=== PATIENT | female | born 1955 | race Hispanic/Latino ===

== ENCOUNTER 2018-11-10 13:30 | Emergency (ER) | payer OTHER ==
[~2018-11-10] VITALS: Ht 157.5 cm; Wt 73.5 kg
[~2018-11-10 13:30] MED LIST: LOSARTAN POTAS100 MG PO; LOVASTATIN10 MG PO; METOPROLOL SUCC25 MG PO
--- OUTSIDE RECORDS SUMMARY | 2018-11-10 13:33 | XMS REPORT | Summary of Care ---
Author Author BLANQUITA PEACOCK M.D. Unknown Address [facility] Phone Unavailable Care Team Providers Care Suction Roller Name Role Phone JOAN YODER M.D. Unavailable Unavailable BLANQUITA PEACOCK M.D. Unavailable Unavailable COREY KEENAN DC, JEAN Hinson Unavailable Unavailable Unavailable Unavailable Functional Status Name Dates Details Functional status health issues are not documented Status: Name Dates Details Cognitive status health issues are not documented Status: Problems Name Dates Details Hyperlipidemia (272.4, E78.5) Status: Active Hypertension (401.9, I10) Status: Active Tachycardia (785.0, R00.0) Status: Active Bladder prolapse Status: Active Postnasal drip (784.91, R09.82) Status: Active Medications Name Dates Details Losartan Potassium 100 MG Oral Tablet TAKE 1 TABLET DAILY. Quantity: 90 JOAN YODER M.D. * Start : 22-Feb-2015 Active Metoprolol Succinate ER 25 MG Oral Tablet Extended Release 24 Hour TAKE 1 TABLET BY MOUTH EVERY DAY * Quantity: 90 Refills: 0 JOAN YODER M.D. * Start : 22-Feb-2015 Active Multivitamins Oral Capsule TAKE 1 CAPSULE DAILY. * Refills: 0 * Start : 22-Feb-2015 Active Lovastatin 20 MG Oral Tablet TAKE 1 TABLET BY MOUTH AT BEDTIME * Quantity: 30 Refills: 0 JOAN YODER M.D. * Start : 02-Mar-2015 Active Carafate TABS * Refills: 0 Active Allergies and Adverse Reactions Name Dates Details Morphine Sulfate (Concentrate) SOLN (Allergy) Status: Active Past Medical History Name Dates Details Hyperlipidemia (272.4, E78.5) Status: Active Hypertension (401.9, I10) Status: Active History of gastritis (V12.79, Z87.19) Status: Resolved Procedures Procedure Dates Details History of Cholecystectomy Completed History of Gallbladder Surgery Completed History of Kidney Surgery Completed Immunization Name Dates Details Immunizations not documented Family History Name Dates Details Family history of hypertension (V17.49, Z82.49) Comments: Family History Status: Active Family history of hyperlipidemia (V18.19, Z83.49) Comments: Family History Status: Active Family history of diabetes mellitus (V18.0, Z83.3) Comments: Family History Status: Active Social History Name Dates Details - Status: Name Dates Details Former smoker Former smoker Vital Signs Date Test Result Details [id number] BP Systolic 143 mm[Hg] Status: BP Diastolic 81 mm[Hg] Status: Height 62 in Status: Weight 177.125 lb Status: Body Mass Index Calculated 32.4 kg/m2 Status: Body Surface Area Calculated 1.82 m2 Status: Heart Rate 84 /min Status: Results Date Description Value Details Results not documented Plan of Care Name Dates Details Planned Observations Planned Goals not documented Interventions Provided Plan* 1. Has some postnasal drip and drainage down the throat. Normal appearing mucosa with some cobblestoning. FU as needed. Instructions Name Dates Details Instructions not documented Encounters Appointment; JAMEL LIN M.D. Encounter Diagnosis: Problem not documented On: 31-May-2017 10:00 Appointment; JEAN NICOLE Encounter Diagnosis: Problem not documented On: 27-Jun-2017 16:00 Appointment; JEAN NICOLE Encounter Diagnosis: Problem not documented On: 11-Jul-2017 8:15 Appointment; BLANQUITA PEACOCK M.D. Encounter Diagnosis: Problem not documented On: 18-Jun-2018 10:45
--- OUTSIDE RECORDS SUMMARY | 2018-11-10 13:33 | XMS REPORT ---
Author Author Young Ocasio Organization [employer] Address Unknown Phone Unavailable Care Team Providers Care Corporation Officer Name Role Phone Young Ocasio CP Unavailable Allergies, Adverse Reactions, Alerts Substance Reaction Event Type Reclast joint pain Drug Allergy Morphine Sulfate increased HR Drug Allergy Fosamax stomach upset Drug Allergy Evista Stomach upset Drug Allergy Problems Problem Type Condition Code Onset Dates Condition Status Problem Vitamin D deficiency, unspecified E55.9 Active Problem Long-term use of high-risk medication Z79.899 Active Problem Age-related osteoporosis without current pathological fracture M81.0 Active Assessment Age-related osteoporosis without current pathological fracture M81.0 Active Assessment Long-term use of high-risk medication Z79.899 Active Medications Medication Code System Code Instructions Start Date End Date Status Dosage Losartan Potassium [facility] [address]-10 100 MG Orally Once a day Active 1 tablet Vitamin D (Ergocalciferol) [facility] [address]-27 28582 UNIT Orally Once a week Jul 04, 2017 Active 1 capsule Toprol XL [facility] [address]-33 25 MG Orally Once a day Active 1 tablet Lovastatin [facility] [address]-90 10 MG Orally Once a day Active 1 tablet with a meal Multivitamins Plus Zinc [facility] [address]-53 Orally Active as directed MSM Glucosamine Complex NDC 0 Orally Once a day Active 1 tablet with meals Prolia [facility] [address]-31 60 MG/ML Subcutaneous Aug 01, 2017 Active as directed Vital Signs Date/Time: Aug 01, 2017 BMI 30.11 Index Weight 170 lbs Height 63 in Temperature 98.0 F Cardiac Monitoring Heart Rate 80 /min Blood Pressure Diastolic 72 mm Hg Blood Pressure Systolic 124 mm Hg Results No Known Results Summary Purpose [employer] Submission
--- OUTSIDE RECORDS SUMMARY | 2018-11-10 13:33 | XMS REPORT ---
Author Author Young Ocasio Organization [employer] Address Unknown Phone Unavailable Care Team Providers Care Manager Of School Name Role Phone Young Ocasoi CP Unavailable Allergies, Adverse Reactions, Alerts Substance [...] Instructions Start Date End Date Status Dosage Multivitamins Plus Zinc ND 50108019808 Orally Active as directed Toprol XL ND 98961126632 25 MG Orally Once a day Active 1 tablet MSM Glucosamine Complex NDC 0 Orally Once a day Active 1 tablet with meals Lovastatin ND 47923456568 10 MG Orally Once a day Active 1 tablet with a meal Prolia ND 17164424484 60 MG/ML Subcutaneous Aug 01, 2017 Active as directed Losartan Potassium ND 43548054100 100 MG Orally Once a day Active 1 tablet Vitamin D (Ergocalciferol) ND 88834180433 55242 UNIT Orally Once a week Jul 04, 2017 Active 1 capsule Vital Signs Date/Time: February 20, 2018 BMI 30.29 Index Weight 171 lbs Height 63 in Temperature 96.9 F Cardiac Monitoring Heart Rate 80 /min Blood Pressure Diastolic 90 mm Hg Blood Pressure Systolic 138 mm Hg Results No Known Results Summary Purpose [employer] Submission
--- OUTSIDE RECORDS SUMMARY | 2018-11-10 13:33 | XMS REPORT ---
Author Author Jay Carey Organization [employer] Address Unknown Phone Unavailable Care Team Providers Care Secretary To The Vice President Name Role Phone Jay Carey CP Unavailable Allergies No Known Allergies Problems Problem Type Condition Code Onset Dates Condition Status Problem Vitamin D deficiency, unspecified E55.9 Active Problem Long-term use of high-risk medication Z79.899 Active Problem Age-related osteoporosis without current pathological fracture M81.0 Active Medications No Known Medications Results No Known Results Summary Purpose [employer] Submission
--- OUTSIDE RECORDS SUMMARY | 2018-11-10 13:33 | XMS REPORT ---
Author Author Jay Carey [facility] [employer] Address Unknown Phone Unavailable Care Team Providers Care Rn Orthopedic Name Role Phone Jay Carey CP Unavailable Allergies No Known Allergies Problems Problem Type Condition Code Onset Dates Condition Status Problem Vitamin D deficiency, unspecified E55.9 Active Problem Long-term use of high-risk medication Z79.899 Active Problem Age-related osteoporosis without current pathological fracture M81.0 Active Assessment Age-related osteoporosis without current pathological fracture M81.0 Active Assessment Long-term use of high-risk medication Z79.899 Active Medications No Known Medications Results No Known Results Summary Purpose [employer] Submission
--- OUTSIDE RECORDS SUMMARY | 2018-11-10 13:33 | XMS REPORT | Continuity of Care Document ---
Author Author [facility] Address Unknown Phone Unavailable Problems Problem Status Onset Date Classification Date Reported Comments Source Vitamin D deficiency, unspecified Active Problem 08/27/2018 Roland Carey Long-term use of high-risk medication Active Problem 08/27/2018 Roland Carey Age-related osteoporosis without current pathological fracture Active Problem 08/27/2018 Roland Carey Medications Medication Details Route Status Patient Instructions Ordering Provider Order Date Source Prolia as directed Subcutaneous Active 60 MG/ML Subcutaneous Ninfa 08/01/2017 Roland Carey Prolia as directed Subcutaneous Active 60 MG/ML Subcutaneous Ninfa 08/01/2017 Roland Carey Vitamin D (Ergocalciferol) 1 capsule Orally Active 32246 UNIT Orally Once a week Ninfa 07/04/2017 Roland Carey Vitamin D (Ergocalciferol) 1 capsule Orally Active 26885 UNIT Orally Once a week Ninfa 07/04/2017 Roland Carey Losartan Potassium 1 tablet Orally Active 100 MG Orally Once a day Ninfa Roland Carey Toprol XL 1 tablet Orally Active 25 MG Orally Once a day Ninfa Roland Carey Lovastatin 1 tablet with a meal Orally Active 10 MG Orally Once a day Ninfa Roland Carey Multivitamins Plus Zinc as directed Orally Active Orally Ninfa Roland Carey MSM Glucosamine Complex 1 tablet with meals Orally Active Orally Once a day Ninfa Roland Carey Multivitamins Plus Zinc as directed Orally Active Orally Ninfa Roland Carey Toprol XL 1 tablet Orally Active 25 MG Orally Once a day Ninfa Roland Carey Lovastatin 1 tablet with a meal Orally Active 10 MG Orally Once a day Ninfa Roland Carey Losartan Potassium 1 tablet Orally Active 100 MG Orally Once a day Ninfa Roland Carey Allergies, Adverse Reactions, Alerts Substance Category Reaction Severity Reaction type Status Date Reported Comments Source Reclast Adverse Reaction joint pain Adverse Reaction Active 02/20/2018 Roland Carey Morphine Sulfate Adverse Reaction increased HR Adverse Reaction Active 02/20/2018 Roland Carey Fosamax Adverse Reaction stomach upset Adverse Reaction Active 02/20/2018 Roland Carey Evista Adverse Reaction Stomach upset Adverse Reaction Active 02/20/2018 Roland Carey Immunizations Immunization Date Given Site Status Last Updated Comments Source Results Order Name Results Value Reference Range Date Interpretation Comments Source Vital Signs Vital Sign Value Date Comments Source Weight 171 02/20/2018 Roland Falker Height 63 02/20/2018 Roland Carey Temperature Oral (F) 96.9 F 02/20/2018 Roland Carey Heart Rate 80 02/20/2018 Roland Carey Diastolic (mm Hg) 90 02/20/2018 Roland Carey Systolic (mm Hg) 138 02/20/2018 Roland Carey Weight 170 08/01/2017 Roland Carey Height 63 08/01/2017 Roland Carey Temperature Oral (F) 98.0 F 08/01/2017 Roland Carey Heart Rate 80 08/01/2017 Roland Carey Diastolic (mm Hg) 72 08/01/2017 Roland Carey Systolic (mm Hg) 124 08/01/2017 Roland Carey Encounters Location Location Details Encounter Type Encounter Number Reason For Visit Attending Provider ADM Date DC Date Status Source Procedures Procedure Code Date Perfomer Comments Source
--- OUTSIDE RECORDS SUMMARY | 2018-11-10 13:33 | XMS REPORT ---
Author Author Young Ocasio Organization [employer] Address Unknown Phone Unavailable Care Team Providers Care Calenderer Name Role Phone Young Ocasio CP Unavailable Allergies No Known Allergies Problems Problem Type Condition Code Onset Dates Condition Status Problem Vitamin D deficiency, unspecified E55.9 Active Problem Long-term use of high-risk medication Z79.899 Active Problem Age-related osteoporosis without current pathological fracture M81.0 Active Medications Medication Code System Code Instructions Start Date End Date Status Dosage Vitamin D (Ergocalciferol) [facility] 77632429229 37025 UNIT Orally Once a week Jul 04, 2017 Active 1 capsule Results No Known Results Summary Purpose [employer] Submission
[2018-11-10 16:24] LABS: BASOPHILS % 0.3 % (0.0-1.0); EOSINOPHILS # (AUTO) 0.1 (0.0-0.4); EOSINOPHILS % 1.2 % (0.0-6.0); HEMATOCRIT 38.5 % (34.2-44.1); HEMOGLOBIN 13.7 g/dL (12.0-16.0); LYMPHOCYTES # (AUTO) 3.2 (1.0-3.2); LYMPHOCYTES % 30.4 % (18.0-39.1); MEAN CORPUSCULAR HEMOGLOBIN 31.5 pg (28-32); MEAN CORPUSCULAR HGB CONC 35.6 g/dL (31-35); MEAN CORPUSCULAR VOLUME 88.5 fL (81-99); MONOCYTES # (AUTO) 0.6 (0.2-0.8); MONOCYTES % 5.9 % (4.4-11.3); NEUTROPHILS # (AUTO) 6.4 (2.1-6.9); NEUTROPHILS % 61.8 % (38.7-80.0); PLATELET COUNT 291 x10e3/uL (140-360); RED BLOOD COUNT 4.35 x10e6/uL (3.6-5.1); RED CELL DISTRIBUTION WIDTH 12.1 % (11.7-14.4)
--- NOTE | 2018-11-10 17:19 | Diagnostic Imaging Report ---
CT BRAIN WO HISTORY: Headache COMPARISON: None. TECHNIQUE: Noncontrast axial scans were obtained from skull base to the vertex. Coronal and sagittal reconstructions obtained from the axial data. One or more of the following dose reduction techniques were used: Automated exposure control, adjustment of the mA and/or kV according to patient size, and/or utilization of iterative reconstruction technique. DISCUSSION: Scalp/Skull: Unremarkable. Brain sulci: Appropriate for patient's age. Ventricles: Normal in size and configuration. No hydrocephalus. Extra-axial spaces: No masses or fluid collections. Parenchyma: A few small juxtacortical calcifications are seen in the right frontal lobe, left temporal lobe, and left occipital lobe. Otherwise, no masses, hemorrhage, or large vascular territory acute infarct. Dural sinuses: No abnormal densities. Sellar/Suprasellar region: Intact. Skull base: Intact. Incidental findings: Mild carotid siphon calcifications are present. IMPRESSION: 1. No acute intracranial abnormalities. 2. Few small right frontal, left temporal, and left occipital juxtacortical calcifications may be from remote infection or inflammation. Signed by: Dr. Srinath Vega M.D. on 11/10/2018 5:16 PM
--- NOTE | 2018-11-10 17:22 | Diagnostic Imaging Report ---
CT MAXIO FAC/PARANAS WO HISTORY: Headache COMPARISON: High blood pressure TECHNIQUE: CT of the sinuses was performed without intravenous contrast. Coronal and sagittal reformations were created. One or more of the following dose reduction techniques were used: Automated exposure control, adjustment of the mA and/or kV according to patient size, and/or utilization of iterative reconstruction technique. DISCUSSION: The paranasal sinuses, major drainage pathways, and nasal cavities are clear. Both middle turbinates are pneumatized. Please refer to concurrent head CT for intracranial findings. Otherwise, the visualized orbits and soft tissues are unremarkable. There are mild degenerative changes in the upper cervical spine. IMPRESSION: The paranasal sinuses, major drainage pathways, and nasal cavities are clear. Signed by: Dr. Srinath Vega M.D. on 11/10/2018 5:19 PM
[2018-11-10 17:30] LABS: ERYTHROCYTE SEDIMENTATION RATE 11 mm/hr (0-20)
[2018-11-10 18:25] LABS: BLOOD UREA NITROGEN 18 mg/dL (7-26); BUN/CREATININE RATIO 26 (6-25); CALCIUM 9.9 mg/dL (8.4-10.2); CARBON DIOXIDE 20 mmol/L (22-29); CHLORIDE 105 mmol/L (98-107); CREATININE, SERUM 0.69 mg/dL (0.57-1.11); EST GLOMERULAR FILTRATION RATE > 60 ML/MIN (60-); GLUCOSE 88 mg/dL (74-118); SODIUM 141 mmol/L (136-145)
== END 2018-11-10 18:41 | disposition home or self-care (01) ==
LOC: ER 13:30
DX: G44.211 Episodic tension-type headache, intractable (principal)
CPT/HCPCS: 36415; 70450; 70486; 80048; 85025; 85651; 99284